=== PATIENT | female | born 1960 | race Caucasian/White ===

== ENCOUNTER 2016-09-17 19:50 | Emergency (ER) | payer MEDICAID, OTHER ==
[2016-09-17 19:56] VITALS: BP 140/79
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
[2016-09-17] MEDS ORDERED: HYDROcod/ACET 5/325 Prepack 6 PO STA (20:34)
[2016-09-17] MEDS ORDERED: SILVER SULFADIAZINE CREAM 25 GM TUBE TOP STA (20:34)
[2016-09-17] MEDS ORDERED: HYDROcod/ACET 5/325 Prepack 6 PO ONE (20:35)
[2016-09-17] MEDS ORDERED: SILVER SULFADIAZINE CREAM 25 GM TUBE TOP ONE (20:35)
== END 2016-09-17 20:46 | disposition home or self-care (01) ==
LOC: ED 19:50 → MERGE 19:50 → ED 20:46
DX: T24.132A Burn of first degree of left lower leg, initial encounter (principal); T24.131A Burn of first degree of right lower leg, initial encounter; T31.0 Burns involving less than 10% of body surface; X13.1XXA Other contact with steam and other hot vapors, initial encounter; Y92.89 Other specified places as the place of occurrence of the external cause; Y99.0 Civilian activity done for income or pay; F17.200 Nicotine dependence, unspecified, uncomplicated
CPT/HCPCS: 99283; A9270

== ENCOUNTER 2016-10-20 01:09 | Outpatient (CLI) | payer OTHER, MEDICAID | END 2016-10-20 01:10 | disposition home or self-care (01) | LOC: LAB 01:09 | PROVIDERS: ATTEND Pathology Neuropathology | DX: Z53.9 Procedure and treatment not carried out, unspecified reason (principal) ==